=== PATIENT | female | born 1980 | race Caucasian/White ===

== ENCOUNTER 2023-08-11 09:22 | Emergency (ER) | payer OTHER, SELFPAY ==
[2023-08-11 09:29] VITALS: BP 146/82; PULSE 91; O2SAT 99
[2023-08-11 09:31] VITALS: BP 109/65; PULSE 70; RESP 16; TEMP 36.6; O2SAT 98; BMI 31.2
[2023-08-11 10:00] VITALS: BP 109/64; PULSE 70; RESP 18; TEMP 36.3; O2SAT 99
--- NOTE | 2023-08-11 11:16 | ED.GENADULT ---
HPI - General Adult General Chief complaint: General Medical Stated complaint: WITHDRAWAL SYMPTOMS Time Seen by Provider: 08/11/23 11:15 History of Present Illness HPI narrative: patient presents for short-term refill for her Suboxone She was recently released from [facility] and is in a program but does not have a prescription, she does have follow-up in a few days at a Suboxone clinic and is requesting a prescription to tide her through till she gets an appointment in the clinic She takes Suboxone 8 mg twice a day She has no other complaint no headache no vomiting no fever no chills no confusion and denies any recent street drug use Related Data Previous Rx's ?Medication ?Instructions ?Recorded buprenorphine 8 mg-naloxone 2 mg 1 film buccal BID 7 days #14 08/11/23 sublingual film (Suboxone) packets Allergies Allergy/AdvReac Type Severity Reaction Status Date / Time No Known Allergies Allergy Verified 08/11/23 09:33 [facility] Past Medical History Source: nursing notes reviewed Social History Social History Advance Directives: No Advance Directives Information Provided: No Physical Exam ED Vital Signs: Vital Signs - 24 hr 08/11/23 09:31 08/11/23 10:00 08/11/23 12:13 Temperature 97.9 F 97.3 F 97.3 F Pulse Rate 70 70 70 Respiratory Rate 16 18 18 Blood Pressure 109/65 109/64 109/64 Pulse Oximetry 98 99 99 Oxygen Delivery Method Room Air Room Air Room Air BMI result Body Mass Index 31.2 general appearance, comfortable cooperative Head normocephalic atraumatic Pupils equal round reactive light extraocular motions intact Neck is supple Respiratory no distress Extremities full range motion x4 Neuro gait and balance normal, interaction comprehension and expression are normal Course Course Course Narrative: well-appearing patient without any complaint except a request for Suboxone refill She is trying to be compliant with meds and recover from her addiction, dose was confirmed in computer of her last prescription for Suboxone which was 8 mg twice a day and she is given a 1 week supply and she does have an appointment in for 5 days at a Suboxone clinic Medications Administered Discontinued Medications Generic Name Dose Route Start Last Admin Trade Name Freq PRN Reason Stop Dose Admin Buprenorphine/Naloxone 1 film 08/11/23 11:37 08/11/23 11:41 Buprenorphine/Naloxone 8/2 Mg Film SUBLINGUAL 08/11/23 11:38 1 film ONCE ONE Administration Medical Decision Making Lab Data Labs: Lab Results 08/11/23 Range/Units 11:28 Urine Test NEGATIVE (NEGATIVE) Urine Opiates Screen Not Detected (Not Detect) Ur Buprenorphine Scrn Positive H (Not Detect) ng/mL Ur Oxycodone Screen Not Detected (Not Detect) ng/mL Urine Methadone Screen Not Detected (Not Detect) ng/mL Urine Fentanyl Screen POSITIVE H (Not Detect) Ur Barbiturates Screen Not Detected (Not Detect) Ur Phencyclidine Scrn Not Detected (Not Detect) Ur Amphetamines Screen Not Detected (Not Detect) U Benzodiazepines Scrn Not Detected (Not Detect) Urine Cocaine Screen Not Detected (Not Detect) U Marijuana (THC) Screen Not Detected (Not Detect) Discharge Plan Discharge Clinical Impression: Opiate dependence, Medication refill Patient Disposition: Home, Self-Care Additional Instructions: I gave a 1 week supply of your Suboxone twice a day Follow with clinic as scheduled next week Return any time any concerns Prescriptions: New buprenorphine-naloxone [Suboxone] 8-2 mg film 1 film buccal BID 7 Days Qty: 14 0RF Interventions: ED Discharge Assessment Last Done: 08/11/23 12:13 Discharge Date/Time: 08/11/23 12:13 Print Language: Arabic
[2023-08-11 11:23] VITALS: PULSE 70
--- NOTE | 2023-08-11 11:29 | PC.NURSE ---
vss and up to date. urine obtained/sent to lab. COWS = 5. pt waiting to be seen by ED provider. plan of care ongoing.
[2023-08-11] MEDS: Buprenorphine/Naloxone 8/2 mg FILM 1 FILM SUBLINGUAL (11:41)
--- NOTE | 2023-08-11 11:42 | PC.NURSE ---
pt medicated per provider order. pt seen by ED provider/aware of plan of care.
[2023-08-11 11:47] LABS: UPreg QC Valid YES; Urine Pregnancy NEGATIVE (NEGATIVE)
[2023-08-11 11:55] LABS: Amphetamine Screen Urine Not Detected (Not Detect); Barbiturates, Urine Not Detected (Not Detect); Benzodiazepines Screen Urine Not Detected (Not Detect); Buprenorphine Scr Positive (Not Detect); Cannabinoid Screen Urine Not Detected (Not Detect); Cocaine Screen Urine Not Detected (Not Detect); Fentanyl, urine POSITIVE (Not Detect); Methadone Screen, Urine Not Detected (Not Detect); Opiate Screen Urine Not Detected (Not Detect); Oxycodone Screen Urine Not Detected (Not Detect); Phencyclidine Screen Urine Not Detected (Not Detect)
[2023-08-11 12:13] VITALS: BP 109/64; PULSE 70; RESP 18; TEMP 36.3; O2SAT 99
== END 2023-08-11 12:13 | disposition home or self-care (01) ==
PROVIDERS: Emergency Provider Student in an Organized Health Care Education/Training Program
DX: F11.20 Opioid dependence, uncomplicated (principal); Z76.0 Encounter for issue of repeat prescription
CPT/HCPCS: 80307; 81025; 99283